=== PATIENT | female | born 1965 | race Caucasian/White ===

== ENCOUNTER 2019-10-28 10:04 | Emergency (ER) | payer OTHER ==
[2019-10-28 10:09] VITALS: BP 113/79; PULSE 79; TEMP 97.8; BMI 18.0
--- NOTE | 2019-10-28 10:38 | PDOC ---
History of Present Illness - General Chief Complaint: Laceration Stated Complaint: I CUT MY FINGER Time Seen by Provider: 10/28/19 10:29 - History of Present Illness Initial Comments: 10/28/19 14:36 Chief complaint: Injury left fourth finger HPI: Distal phalanx, crush injury, when a window fell on her hand. Laceration and bleeding. No other injuries. Review of systems: Admits numbness of the tip of the finger, but no difficulty moving DIPJ. Remainder of systems reviewed and negative Past medical history: No significant medical or surgical problems past or present, no medications Social/family history reviewed and noncontributory Physical exam: Alert and oriented well-developed well-nourished no acute distress cheerful and cooperative Afebrile, vital signs normal Left fourth finger: There is a partial fingertip avulsion from the mid volar aspect of the finger to the fingertip, just distal to the end of the nail. No involvement of the DIPJ. Full flexion and extension of the DIPJ against resistance. Decreased sensation in the area of the avulsion, fingertip. Impression: Partial fingertip avulsion, rule out fracture Plan: X-ray and repair. Tetanus updated and antibiotics. Follow-up hand specialist. See procedure note Past History - Medical History Allergies/Adverse Reactions: Allergies Allergy/AdvReac Type Severity Reaction Status Date / Time No Known Allergies Allergy Verified 10/28/19 10:05 Home Medications: Ambulatory Orders Cephalexin Monohydrate [Keflex] 500 mg PO Q8H #15 capsule 10/28/19 Ibuprofen 600 mg PO Q4HWA PRN #20 tablet 10/28/19 COPD: No CHF: No - Reproductive History Is Patient Now?: No - Psycho-Social/Smoking History Smoking History: Never smoked - Substance Abuse Hx (Audit-C & DAST Scrn) How often the patient has a drink containing alcohol: Never Score: In Men: 4 or > Positive; In Women: 3 or > Positive: 0 Screen Result (Pos requires Nsg. Audit-10AR): Negative In the last yr the pt used illegal drug/Rx for NonMed reason: No Score: Yes response is considered Positive: 0 Screen Result (Positive result requires Nsg. DAST-10): Negative *Physical Exam - Vital Signs Last Vital Signs Temp Pulse Resp BP Pulse Ox 97.8 F 79 15 113/79 100 10/28/19 10:04 10/28/19 10:04 10/28/19 10:04 10/28/19 10:04 10/28/19 10:04 Medical Decision Making - Medical Decision Making 10/28/19 14:39 X-ray reviewed: There is a fracture of the distal tuft, minimal displacement, no exposure of the bone fragment Procedure note note: Repair of fingertip laceration Finger was prepped with Betadine. Digital block was administered with good anesthesia Wound was scrubbed and irrigated with normal saline, explored. There were lacerations medially and laterally, but there was no exposure of bone or other deep tissues. Fingernail was intact. There was no subungual hematoma. After re-scrubbing and irrigating with saline, hemostasis was obtained with pressure, and the lacerations were sutured with 5-0 nylon, interrupted, reapproximating all tissue of the fingertip. Sutures were placed loosely, but the skin of the fingertip was slightly pale. Patient was advised that it will most likely heal adequately, but that there was a chance that some of the skin was devitalized and would slough, requiring new skin to grow in. She was advised to follow-up with a hand specialist for monitoring healing and to determine if further treatment would be necessary. She understood and agreed. Fully ambulatory and in no pain or other distress at discharge. Discharge - Discharge Information Problems reviewed: Yes Clinical Impression/Diagnosis: Fracture of distal phalanx of finger Qualifiers: Encounter type: initial encounter Finger: ring finger Fracture type: open Fracture alignment: nondisplaced Laterality: left Qualified Code(s): S62.665B - Nondisplaced fracture of distal phalanx of left ring finger, initial encounter for open fracture Finger laceration Qualifiers: Encounter type: initial encounter Finger: ring finger Damage to nail status: without damage Foreign body presence: without foreign body Laterality: left Ben lified Code(s): S61.215A - Laceration without foreign body of left ring finger without damage to nail, initial encounter Condition: Improved Disposition: HOME - Admission No - Additional Discharge Information Prescriptions: Ibuprofen 600 mg PO Q4HWA PRN #20 tablet PRN Reason: Pain Cephalexin Monohydrate [Keflex] 500 mg PO Q8H #15 capsule - Follow up/Referral Referrals: Ren Ferris MD [Staff Physician] - 1 week - Patient Discharge Instructions Patient Printed Discharge Instructions: DI for Laceration Repair, DI for Finger Fracture Additional Instructions: Keep clean and dry. Elevate for 24 hours. Change present bandaging 2 to 3 days. If no sign of infection, dressed with antibiotic ointment and Band-Aid and return for suture removal 7 to 10 days If there is any sign of infection including increased redness swelling drainage or pain, return to ER immediately for wound check. Take antibiotics and pain medication as directed. - Post Discharge Activity
[2019-10-28] MEDS ORDERED: DIPHTH,PERTUSS(ACELL),TET 0.5 ML DISP.SYRIN IM ONE ×2 (10:39→11:11)
[2019-10-28] MEDS ORDERED: LIDOCAINE HCL 1%, 10 MG/ML (20ML VIAL) ONE (12:06)
[2019-10-28] MEDS ORDERED: CEPHALEXIN MONOHYDRATE 500 MG CAPSULE (UD) PO ONE (12:34)
[2019-10-28] MEDS ORDERED: CEPHALEXIN MONOHYDRATE 500 MG CAPSULE (UD) ONE (13:18)
== END 2019-10-28 13:44 | disposition home or self-care (01) ==
LOC: FER 10:04
PROC: 3E0234Z Introduction of Serum, Toxoid and Vaccine into Muscle, Percutaneous Approach (ICD-10-PCS; principal; 2019-10-28)
DX: S62.665B Nondisplaced fracture of distal phalanx of left ring finger, initial encounter for open fracture (principal); S61.215A Laceration without foreign body of left ring finger without damage to nail, initial encounter; Y99.9 Unspecified external cause status
CPT/HCPCS: 73140-TC-LT-FY; 90715; 99283-25

== ENCOUNTER 2023-08-15 19:17 | Emergency (ER) | payer OTHER ==
[2023-08-15 19:30] VITALS: BP 124/75; PULSE 64; RESP 18; TEMP 97.7; BMI 18.0
[2023-08-15] MEDS ORDERED: DIPHTH,PERTUSS(ACELL),TET 0.5 ML DISP.SYRIN IM ONE (20:07)
[2023-08-15] MEDS: DIPHTH,PERTUSS(ACELL),TET 0.5 ML DISP.SYRIN IM ONE (20:21)
[2023-08-15] MEDS ORDERED: CEPHALEXIN MONOHYDRATE 500 MG CAPSULE (UD) ONE (21:21)
[2023-08-15] MEDS: CEPHALEXIN MONOHYDRATE 500 MG CAPSULE (UD) PO ONE (21:22)
== END 2023-08-15 21:27 | disposition home or self-care (01) ==
LOC: FER 19:17
PROC: 0XQQXZZ Repair Right Middle Finger, External Approach (ICD-10-PCS; principal; 2023-08-15)
PROC: 3E0234Z Introduction of Serum, Toxoid and Vaccine into Muscle, Percutaneous Approach (ICD-10-PCS; 2023-08-15)
DX: S61.212A Laceration without foreign body of right middle finger without damage to nail, initial encounter (principal); W26.0XXA Contact with knife, initial encounter; Z23 Encounter for immunization
CPT/HCPCS: 73140-TC-RT-FY; 90715